=== PATIENT | female | born 1985 | race Caucasian/White ===

== ENCOUNTER 2020-05-23 08:29 | Emergency (ER) | payer OTHER, SELFPAY ==
[2020-05-23 08:40] VITALS: BP 126/73; PULSE 72; RESP 18; TEMP 36.4; O2SAT 99
--- NOTE | 2020-05-23 09:39 | ED.DENTAL ---
HPI - Dental/Oral General Chief complaint: Ear Stated complaint: EAR PAIN Source: patient Mode of arrival: ambulatory Limitations: no limitations History of Present Illness HPI Narrative: Patient has multiple teeth broken off at gum line. She has had repeated abscessed teeth. This time she has tenderness near her left ear, soreness in her neck, and jaw. With my exam she appears to have dental abscesses. I believe her problem is these abscessed teeth, as her ear looks fine. All of her molars and premolars on the top and the bottom on the left are in very poor condition. Most are broken off at the gum line. Complaint: tooth pain Severity: mild Relieving factors: nothing Exacerbating factors: cold Context: poor dental care Associated symptoms: gum swelling Treatment prior to arrival: other (nonsteroidial drug ) Related Data Home Medications Medication Instructions Recorded Confirmed clonazepam 2 mg PO BID 05/23/20 05/23/20 hydroxyzine pamoate 50 mg PO DAILY 05/23/20 05/23/20 simvastatin 20 mg PO DAILY 05/23/20 05/23/20 Allergies Allergy/AdvReac Type Severity Reaction Status Date / Time ondansetron [From Zofran] Allergy Unknown Verified 05/23/20 09:00 Review of Systems Review of Systems: Narrative: As above. She has stated she has a fear of needles and has been afraid of going to the dentist because of this. All systems reviewed & are unremarkable except as noted in HPI and below PMFSH Surgical History Surgical History History of appendectomy History of cholecystectomy Hx of tonsillectomy Tubal ligation status Exam Const: General: no acute distress HENMT: General nose exam: Normal nares present Face and sinus: normal facial exam Other: She has multiple teeth broken off at the gum line that appear to be chronically infected. Ears appear within normal limits. She has had multiple ear infections in the past and intervention on the right ear, that being said the ear does not appear to be infected. She appears to have multiple nodes that are mildly swollen and tender. Eyes: EOM: EOMs intact bilaterally Neck: Other: tonsillar node tender on both sides Chest: Chest palpation & inspection: normal inspection of the chest Other: chest clear Resp: Effort & Inspection: normal respiratory effort Auscultation: clear to auscultation bilaterally Cardio: Rate: regular rate Rhythm: regular rhythm GI: GI Palp: Yes Soft to palpation Skin: General skin exam: normal color Rashes: no rashes Neuro: General: patient oriented x3 Extrem: General: normal to inspection Psych: Appearance: grossly normal Mental Status: mental status grossly normal Course Course Emergency Course: She was examined and will be sent home with a script for Pen VK Vital Signs Vital signs: Vital Signs Temperature 36.4 C L 05/23/20 08:40 Pulse Rate 72 05/23/20 08:40 Respiratory Rate 18 05/23/20 08:40 Blood Pressure 126/73 05/23/20 08:40 Pulse Oximetry 99 05/23/20 08:40 Temperature 36.4 C L 05/23/20 08:40 Pulse Rate 72 05/23/20 08:40 Respiratory Rate 18 05/23/20 08:40 Blood Pressure 126/73 05/23/20 08:40 Pulse Oximetry 99 05/23/20 08:40 Discharge Plan Discharge Clinical Impression: Tooth abscess Patient Disposition: Home, Self-Care Condition: Stable Instructions: Antibiotic Form Additional Instructions: Follow up with dentist as soon as possible. Prescriptions: New penicillin V potassium 500 mg tablet 500 mg PO Q6H Qty: 40 RF: 2 No Action clonazepam 1 mg tablet 2 mg PO BID RF: 0 hydroxyzine pamoate 50 mg capsule 50 mg PO DAILY RF: 0 simvastatin 20 mg tablet 20 mg PO DAILY RF: 0 Follow-up/Referrals: UNKNOWN,DOCTOR [Primary Care Provider] - Time of Disposition: 09:59
[2020-05-23 09:43] VITALS: BP 122/70; PULSE 75; RESP 18; O2SAT 97
== END 2020-05-23 10:10 | disposition home or self-care (01) ==
PROVIDERS: Emergency Provider Emergency Medicine
DX: K04.7 Periapical abscess without sinus (principal)
CPT/HCPCS: 99283